=== PATIENT | female | born 1995 | race Hispanic/Latino ===

== ENCOUNTER 2016-11-10 05:26 | Emergency (ER) | payer MEDICAID, OTHER ==
[~2016-11-10] VITALS: Ht 152.4 cm; Wt 70.0 kg
[~2016-11-10 05:26] MED LIST: ASCO500T8 PO; Docusate Sodium PO; FERR-74 PO; Ibuprofen PO; Oxycodone/Acetaminophen PO; PREN1TAB78 PO
[2016-11-10 05:29] VITALS: BP 110/68; PULSE 94; RESP 18; O2SAT 98
--- NOTE | 2016-11-10 06:03 | ED.REPORT ---
HPI-Abd Pain F Under 38 Date of Service Nov 10, 2016 ED Provider: Dr. Kahlil Cuello Patient is a 20 year old female who reports to the ED complaining of RUQ abdominal pain onset two hours ago. She has had mild pain for about a year but it has been increasing in severity over the past month. Pain woke her up from sleep about 2 hours ago. Patient denies nausea, fever, vomiting, diarrhea. Pain is exacerbated in the morning. Patient is on control. She had a gallbladder ultrasound two months ago (Aug 2016) and an 8 by 9 mm gallbladder polyp was found w/out evidence of cholecystitis. She was seen at [facility] in the last year for similar symptoms and pain was believed to be due to gas. Nursing Notes Stated Complaint: ABDOMINAL PAIN Chief Complaint: Female Abdominal Pain Nursing Notes Reviewed: Yes Allergies: Coded Allergies: No Known Allergies (Unverified , 08/27/14) Scheduled ([Docusate Sodium]) 100 MG CAPSULE 100 MG PO BID Ascorbic Acid (Vitamin C) 500 Mg Tablet 500 MG PO TIDWM Ferrous Sulfate (Feosol) 325 Mg Tablet 325 MG PO TID Vits W-Ca,Fe,FA(<1Mg) ( Formula) 1 Each Tablet 1 EACH PO QAM Scheduled PRN ([Ibuprofen]) 600 MG TABLET 600 MG PO Q6H PRN PRN For Pain ([Oxycodone/Acetaminophen]) 1 TAB TABLET 1-2 TAB PO Q4H PRN PRN For Pain General Time Seen by MD: 06:02 Chief Complaint Abdominal pain Hx Obtained From: Patient Arrived By: Walk-in Sudden in Onset?: Yes Onset Occurred: 1 - 4 hours ago Symptom Duration: Since onset Progression since Onset: Unchanged Location: : Abdomen upper (RUQ) Radiation: : Does not radiate Severity: Current: Mild Severity: Maximum: Mild Similar Sx Previous: Yes Past Medical History Past Medical History denies Past Surgical History Reports: Smoking History Never Smoker Social History Other Social History: Good social support, Ambulatory Status Independent Review of Systems Constitutional: Denies: Fever GI: Reports: Abdominal pain (RUQ), Denies: Diarrhea, Nausea, Vomiting Female: Denies: Flank pain Musculoskeletal: Denies: Back pain Complete sys rev & neg: except as marked. Physical Exam Initial Vital Signs Initial VS: Reviewed Head / Eyes: Atraumatic, Normocephalic, PERRL ENT: Mucous membranes moist, Conjunctiva normal, No scleral icterus Neck: Supple, Full range of motion Skin: Warm, Dry, No cyanosis Neurologic: Alert, Oriented, Nonfocal Psychiatric: Mood/affect normal, Behavior normal, Normal thought content General/Constitutional: Awake, Alert, No acute distress, Well appearing, Cooperative, Not toxic appearing Respiratory / Chest: Atraumatic, Breath sounds NL, Breath sounds = bilat, No respiratory distress, No rales, No rhonchi, No wheezing, No retractions, No stridor, No chest tenderness, No chest wall deformity, No crepitus Cardiovascular: Heart rate NL, Regular rhythm, Heart sounds NL, No gallop, No murmurs, No rubs, Cap refill not delayed, Peripheral circulation NL Abdomen: Atraumatic, Soft, No guarding, No rebound, BS normoactive Tenderness/Guarding/Rebound: Positive: Tender RUQ... (Mild) Back: Full range of motion, Painless range of motion, No CVA tenderness Interpretation & Diagnostics Lab Results Interpretation Test 11/10/16 06:07 White Blood Count 4.3th/mm3 (3.8-10.1) Red Blood Count 4.29mil/mm3 (3.90-5.20) Hemoglobin 12.6g/dL (12.0-15.6) Hematocrit 37.4% (35.0-46.0) Mean Corpuscular Volume 87.2fL (81-100) Mean Corpuscular Hemoglobin 29.4pg (27.0-35.0) Mean Corpuscular Hemoglobin Concent 33.7% (32.0-37.0) Red Cell Distribution Width 13.3% (12.3-15.4) Platelet Count 236bil/L (150-400) Neutrophils (%) (Auto) 42.7% (40-74) Lymphocytes (%) (Auto) 37.4% (14-46) Monocytes (%) (Auto) 13.4% (4-12) Eosinophils (%) (Auto) 5.1% (0-5) Basophils (%) (Auto) 0.9% (0-3) Hold Urine Received (Received) Sodium Level 136mEq/L (134-144) Potassium Level 3.7mEq/L (3.5-5.2) Chloride Level 103mEq/L (97-108) Carbon Dioxide Level 23mmol/L (18-29) Blood Urea Nitrogen 10mg/dL (6-20) Creatinine 0.43mg/dL (0.57-1.00) Estimat Glomerular Filtration Rate 263mL/min (>59) Glucose Level 103mg/dL (60-99) Calcium Level 8.2mg/dL (8.5-10.1) Magnesium Level 2.1mg/dL (1.6-2.6) Total Bilirubin 0.4mg/dL (0.0-1.2) Aspartate Amino Transf (AST/SGOT) 24U/L (0-50) Alanine Aminotransferase (ALT/SGPT) 22U/L (0-32) Alkaline Phosphatase 105U/L (25-150) Total Protein 7.4g/dL (6.4-8.4) Albumin 3.9g/dL (3.4-5.0) Lipase 18U/L (13-60) Hold Johansen Top Tube Received (Received) X-Ray Abdominal Interpretation IMPRESSION: 1. Moderate colonic stool may reflect constipation. No evidence of obstruction. Dictated by: Epi Padilla M.D. on 11/10/2016 at 8:28 Approved by: Epi Padilla M.D. on 11/10/2016 at 8:28 Study: 4 view Interpretation / Wet Read by: Jacques read ED physician Re-Eval/Medical Decision Med Decision/Clinical Course 20-year-old female with a history of intermittent right upper quadrant abdominal pain presenting with abdominal pain in the right upper quadrant since early this morning. She has a history of a gallbladder polyp that was found in August 2016 but was not causing any cholecystitis. She has normal lab work, normal vitals, and an x-ray that shows moderate stool load. I believe that her discomfort may be related to constipation. Her pain was relieved by Toradol. I will have her follow-up with her PCP. Re-Evaluation/Progress : Time of Eval: 08:22 Re-Evaluation/Progress Note: Pt rechecked. Informed pt of diagnosis and plan for treatment. Pt understands and agrees with plan. F/U and RTER warnings given. All questions addressed. Counseled Regarding: Diagnosis, Lab results, Need for follow-up, When/why to return to ED Discharge & Departure Primary Impression: Acute abdominal pain in right upper quadrant Additional Impression: Constipation Constipation type: unspecified constipation type Qualified Code: K59.00 - Constipation, unspecified Disposition: Home Discharge Condition All VS Reviewed: Yes Condition: Stable Patient Instructions: Acute Abdominal Pain (ED) Additional Instructions: Your evaluation today did not reveal anything dangerous. Your labs looked normal. Your x-ray showed a large amount of stool in your colon. I believe this is the cause of your pain. Please use magnesium citrate and drink the entire bottle when you get home. This should help relieve your symptoms. You may also want to start taking a stool softener daily. Please follow-up with your primary care provider to discuss your ongoing abdominal pain problems. Return if your symptoms worsen or if you develop new symptoms. Referrals: [facility] (PCP) [place] Attestation Portion of this note were transcribed by Higinio Reynaga and Tigre Potter. Dr. Cuate Candelario, personally performed the history, physical exam, and medical decision-making: I reviewed and confirmed the accuracy for the information in the transcribed note. Signed by: mohan Robbins, 11/10/16 0830 copies to: [facility] Kahlil Cuello DO Nov 10, 2016 06:02 TIGRE POTTER Nov 10, 2016 06:34 HIGINIO REYNAGA Nov 10, 2016 06:45 Portion of this note were transcribed by Higinio Reynaga and Tigre Potter. Dr. Cuate Candelario, personally performed the history, physical exam, and medical decision-making: I reviewed and confirmed the accuracy for the information in the transcribed note. Signed by: mohan Robbins, 11/10/16 0830 copies to: [facility] Kahlil Cuello DO Nov 10, 2016 06:02 TIGRE POTTER Nov 10, 2016 06:34 HIGINIO REYNAGA Nov 10, 2016 06:45
[2016-11-10] MEDS ORDERED: 0.9% Sodium Chloride 1,000 ML IV ONE (06:10)
[2016-11-10 06:37] LABS: BASOPHILS % (AUTO) 0.9 % (0-3); EOSINOPHILS % (AUTO) 5.1 % (0-5); MONOCYTES % (AUTO) 13.4 % (4-12); Mean Corpuscular Hemoglobin 29.4 pg (27.0-35.0); Mean Corpuscular Volume 87.2 fL (81-100); NEUTROPHILS % (AUTO) 42.7 % (40-74); Platelet Count 236 bil/L (150-400)
[2016-11-10 06:49] LABS: Magnesium 2.1 mg/dL (1.6-2.6)
--- NOTE | 2016-11-10 08:30 | DRSVH ---
PROCEDURE: X-RAY ACUTE ABDOMINAL SERIES ([id number]) INDICATIONS: abd pain TECHNIQUE: One view chest and two views of the abdomen were acquired. COMPARISON: None. FINDINGS: Surgical changes and devices: None. Chest: Lungs are clear. Heart size is normal. No pleural effusions. No pneumoperitoneum. Abdomen: Bowel gas pattern is within normal limits with a moderate amount of colonic stool which may reflect constipation. No abnormal dilated loops of bowel to suggest obstruction. No suspicious rene cifications. Bones: No suspicious bony lesions. IMPRESSION: 1. Moderate colonic stool may reflect constipation. No evidence of obstruction. Dictated by: Epi Padilla M.D. on 11/10/2016 at 8:28 Approved by: Epi Padilla M.D. on 11/10/2016 at 8:28
[2016-11-10 08:51] VITALS: BP 103/67; PULSE 86; O2SAT 98
== END 2016-11-10 08:49 | disposition home or self-care (01) ==
LOC: SED 05:26
DX: K59.00 Constipation, unspecified (principal)
CPT/HCPCS: 36415; 74022; 80053; 81025; 83690; 83735; 85025; 96361; 96374; 99285; J7030